=== PATIENT | female | born 1990 | race Caucasian/White ===

== ENCOUNTER 2020-11-12 08:50 | Emergency (ER) | payer OTHER, SELFPAY ==
[2020-11-12 08:52] VITALS: BP 112/82; PULSE 66; RESP 17; TEMP 36.6; O2SAT 100; BMI 32.4
--- NOTE | 2020-11-12 08:58 | NURSING ---
NO OLD EKGS
--- NOTE | 2020-11-12 09:20 | EKG12_ITS ---
Test Reason : CP Blood Pressure : / mmHG Vent. Rate : 068 BPM Atrial Rate : 068 BPM P-R Int : 154 ms QRS Dur : 082 ms QT Int : 404 ms P-R-T Axes : 028 016 003 degrees QTc Int : 429 ms Normal sinus rhythm with sinus arrhythmia Cannot rule out Anterior infarct , age undetermined Abnormal ECG Confirmed by HODAN NELSON, ROMERO ([id number]), features editor LIAN SESAY ([id number]) on 11/13/2020 12:42:04 PM Referred By: ALLYSON Confirmed By:ROMERO PETTIT MD
--- NOTE | 2020-11-12 09:30 | RAD_ITS ---
STUDY: X-RAY CHEST REASON FOR EXAM: Female, 30 years old. Chest pain TECHNIQUE: Single AP portable view of the chest. COMPARISON: None. FINDINGS: EKG electrodes are seen. The lungs are clear and expanded. There is no demonstrated pleural abnormality. Normal size heart. Normal mediastinum and meme. Normal visualized pulmonary arteries. Normal visualized aortic arch and descending thoracic aorta. Normal visualized thoracic spine. Normal visualized ribs, clavicles, and shoulders. There is no demonstrated abnormality of the visualized soft tissue structures of the upper abdomen. RAD/Chest 1 View (Portable) IMPRESSION: Normal x-ray examination of the chest. Electronically Signed: Emeka Cruz MD at 9:47 EDT , Service support ,
[2020-11-12 09:35] LABS: Absolute Neutrophil Count 3.1 X10^3/uL (2.0-7.7); Basophil# 0.03 X10^3/uL; Basophil% 0.5 % (0-1); Eosinophil# 0.04 X10^3/uL; Eosinophils% 0.7 % (0-5); Hematocrit 38.5 % (37-47); Hemoglobin 13.4 g/dL (12.0-15.0); Lymphocyte % 40.3 % (19-41); Mean Corp Hgb Conc 34.8 g/dL (32-36); Mean Corpuscular Hgb 31.3 pg (27.0-32.0); Mean Platelet Vol. 9.5 fl (6.2-12.0); Monocyte# 0.42 X10^3/uL; NRBC Flagged by Analyzer 0 % (0-5); Neutrophil # 3.06 X10^3/uL (2.7-7.7); Neutrophil % 51.3 % (47-70); Platelet Count 258 K/mm3 (150-450); RBC Distribution Width CV 11.5 % (11.6-14.6); RBC Distribution Width SD 37.5 fl (35.1-43.9); Red Blood Count 4.28 M/mm3 (4.2-5.4)
[2020-11-12 09:45] LABS: Internal QC Validated? YES +Cl - CLEAR BKGD; Pregnancy, Serum, hCG Quali. NEGATIVE Negative
[2020-11-12 09:48] LABS: Anion Gap 5 (5-15); BUN 12 mg/dL (7-18); BUN/Creat Ratio 14.7 RATIO (10-20); Calcium,Total 8.7 mg/dL (8.5-10.1); Chloride 105 mmol/L (98-107); Creatinine, Serum 0.82 mg/dL (0.55-1.02); EST Glomerular Filtration Rate 88 mL/min (>60); Est Glom Filt Rate - Afr Amer 107 mL/min (>60); Estimated Creatinine Clearance 91.91 ml/min; Glucose 89 mg/dL (74-106); Potassium 3.7 mmol/L (3.5-5.1); Sodium Level 136 mmol/L (136-145)
[2020-11-12 09:56] VITALS: O2SAT 98
[2020-11-12] MEDS: 0.9% Normal Saline 1,000 ML 150 ML IV (09:56)
--- NOTE | 2020-11-12 10:00 | ED.DCSUM_ITS ---
- ER Visit Summary Date of Service: 11/12/20 Chief Complaint: Chest pain History of Present Illness: The patient is a 30 F who sees Aminta Galloway. She reports she has chest pain began at 7:00 this morning while she was at rest. Said continuous sharp, tightness that radiates to the right side of her jaw. It a 10 at worst and 2 out of 10 currently. Nothing makes this worse including exertion, movement, or breathing. It is also relieved by nothing. She does report that she is mildly short of breath with this. She denies any associated nausea, vomiting, or diaphoresis. Patient has no personal or family history of DVT. No recent travel. She is not on control pills. She denies any ankle swelling or calf pain. She denies any chest pain or change in dyspnea exertion in the past month. Physical Examination: Vitals: Stable. Afebrile. General: Well-nourished and well-developed. Head: Normocephalic atraumatic. Neck: Supple, no lymphadenopathy. No JVD. Nontender. Cardiovascular: Regular rate and rhythm. No murmurs. Respiratory: No respiratory distress. Clear to auscultation bilaterally. Abdominal: Soft, nontender, nondistended, normal bowel sounds. No guarding, rebound, or peritoneal signs. Back: Nontender. Extremities: Nontender, no edema. Skin: Normal color, no rash. Neurologic: Alert and oriented ?3. Cranial nerves II through XII are intact. Normal strength and sensation. Psych: Normal affect. Test Results: EKG is sinus at 68 with T wave inversion in lead III. There is no old EKG for comparison. Troponin is negative. test is negative. CBC is normal. Chem-7 is normal. Clinical Impression(s) from Imaging Studies Chest X-Ray 11/12/20 09:30 IMPRESSION: Normal x-ray examination of the chest. Electronically Signed: Emeka Cruz MD at 9:47 EDT , Service support , Emergency Department Course and Treatment: Patient is resting comfortably and refused pain medications. Treatment Plan: This time I do not have a good explanation for the patient's pain. Her heart score is 1. I feel that she is a suitable candidate for further outpatient evaluation. She will be discharged instructions to follow-up with her primary care physician in 3 to 5 days for another exam. Return to the emergency department for any worsening symptoms. Disposition: To home in improved and stable condition. Impression: 1. Chest pain, atypical. 2. Heart score of 1. This note was generated with [employer] dictation software. It may contain incorrect words, spelling, and punctuation that were not noted in review of the chart prior to signing ED Disposition - Plan for ED Patient: Instructions: ED Chest Pain, Uncertain Cause Referrals: Aminta Galloway [employer], [employer] [Primary Care Provider] - 3-5 Days
[2020-11-12 10:04] VITALS: BP 108/74; PULSE 67; RESP 15; O2SAT 98
== END 2020-11-12 10:08 | disposition home or self-care (01) ==
PROVIDERS: Emergency Provider Emergency Medicine; PCP Nurse Practitioner Primary Care
DX: R07.89 Other chest pain (principal); R06.02 Shortness of breath
CPT/HCPCS: 71045; 80048; 84484; 84703; 85025; 93005; 99285; A4216